=== PATIENT | male | born 1980 | race Caucasian/White ===

== ENCOUNTER 2019-08-10 10:06 | Emergency (ER) | payer OTHER, SELFPAY ==
[2019-08-10 10:10] VITALS: BMI 27.2
[2019-08-10 10:15] VITALS: BP 146/102; PULSE 81; RESP 16; TEMP 36.9; O2SAT 98
--- NOTE | 2019-08-10 10:28 | W.ED.WOUNDLC ---
HPI - Wound/Laceration General: Chief Complaint: Wound/Laceration Stated Complaint: FALL WITH LAC ABOVE RIGHT EYE Time Seen by Provider: 08/10/19 10:10 Source: patient Mode of arrival: ambulatory Limitations: no limitations History of Present Illness: HPI narrative: Patient is a 38-year-old male who presents to ED today seeking evaluation for a laceration to his face. Patient states around 3 AM last night he accidentally slipped and fell on a wet bathroom floor and struck the right eyebrow sustaining a laceration. Patient denies LOC. He denies neck or back pain. No visual changes. He has no other physical complaints at this time. Last tetanus is unknown. Onset (ago): hour(s) Location: face Place: home Patient tetanus UTD: No Context: accidental Associated symptoms: Reports no associated symptoms Review of Systems Eyes: Denies: change in vision, blurry vision, blind spots, photophobia, eye discomfort, eye discharge, floaters or seeing flashes Musc: Denies: neck pain, back pain, extremity pain or joint pain Skin/Breast: Reports: other (laceration ) Neuro: Denies: headache, numbness in extremities, weakness in extremities, changes in sensation, lack of coordination, difficulty walking, frequent falls, dizziness, confusion or slurred speech PFSH ED PFSH: Social History Smoking and tobacco status: never smoked Physical Exam Const: COMMON NORMALS: no apparent distress, average body habitus, oriented x3, no limitations, healthy appearing, alert and well nourished HENMT: HEAD IMAGES: 1. 2.0cm laceration; not bleeding; no globe injury present Eye: COMMON NORMALS: PERRL, EOMs intact bilaterally, conjunctivae normal and no scleral icterus GENERAL EYE: normal appearance of both eyes and normal light reflex VISUAL ACUITY: Yes acuity normal ALIGNMENT: Yes alignment normal EYELID: eyelids normal CONJUNCTIVA: Yes conjunctivae normal CORNEA: Yes corneas normal PUPIL: Yes PERRL and Yes accommodation reflex normal DIRECT OPHTHALMOSCOPY: Yes normal light reflex Neck/C-Spine: COMMON NORMALS: full ROM CERVICAL SPINE: Yes cervical ROM normal, No pain with cervical ROM, No cervical spine tenderness and No paracervical muscle tenderness Back/Pelvis: COMMON NORMALS: thoracic and lumbar spine normal to inspection, no thoracic nor lumbar tenderness and thoraco-lumbar ROM normal Extremity: COMMON NORMALS: normal to inspection and full ROM Neuro: COMMON NORMALS: oriented x3 SENSORIUM/ORIENTATION: Yes alert Procedures Laceration Laceration 1: Site: face Side (If applicable): right Size (cm): 2.0 Description: linear Depth: simple, single layer Local Anesthetic: lidocaine 1% and with epi Amount of anesthesia used (mL): 1.0 Pre-repair: wound explored and irrigated extensively Skin layer closed with: nylon Size (cm): 5-0 Number of sutures: 6 Technique: simple, interrupted Course Vital Signs: Vital signs: Vital Signs Temperature 98.4 F 08/10/19 10:15 Pulse Rate 81 08/10/19 10:15 Respiratory Rate 16 08/10/19 10:15 Blood Pressure 146/102 08/10/19 10:15 Pulse Oximetry 98 08/10/19 10:15 Discharge Plan Discharge Patient Disposition: Home, Self-Care Clinical Impression: Facial laceration Qualifiers: Encounter type: initial encounter Qualified Code(s): S01.81XA - Laceration without foreign body of other part of head, initial encounter Condition: Stable Discharge Orders: Discharge Order (Routine); Ordered 08/10/19 Ordered By: Nasra Arroyo Referrals: [facility] [Other] Discharge Diet: Usual diet Discharge Activity: Resume usual activity Patient Instructions: Suture Care (ED), Laceration (ED) Activity Restrictions/Additional Instructions: SUTURES CAN BE CUT OUT IN 5-7 DAYS. Coding Level of Care Code ED [employer] Teacher for No Fwd Exam Detailed
[2019-08-10] MEDS: tetanus-diphtheria tox (adult) 0.5 mL SDV IM (10:43)
[2019-08-10 11:51] VITALS: BP 134/92; PULSE 76; RESP 16; TEMP 36.6; O2SAT 98
== END 2019-08-10 11:53 | disposition home or self-care (01) ==
LOC: ER 11:40
PROVIDERS: Emergency Provider Physician Assistant
DX: S01.111A Laceration without foreign body of right eyelid and periocular area, initial encounter (principal); W01.0XXA Fall on same level from slipping, tripping and stumbling without subsequent striking against object, initial encounter; Y92.002 Bathroom of unspecified non-institutional (private) residence as the place of occurrence of the external cause
CPT/HCPCS: 12011; 12345; 90471; 90714; 99281; 99282; J2001

== ENCOUNTER 2020-01-29 13:56 | Emergency (ER) | payer SELFPAY ==
[2020-01-29 14:14] VITALS: BP 142/90; PULSE 110; RESP 14; TEMP 36.5; O2SAT 99; BMI 27.2
--- NOTE | 2020-01-29 14:52 | W.ED.ANXIETY ---
HPI - Anxiety General: Chief Complaint: Anxiety Stated Complaint: PANIC ATTACKS X 4 DAYS Time Seen by Provider: 01/29/20 14:47 History of Present Illness: HPI narrative: Patient complains about anxiety has a history of. just left median divorce. Feels very anxious denies any suicidal or homicidal ideations has been on anxiety medication in the past now but really help. Would like to try some different if possible. MD complaint: anxiety Severity: moderate Quality: constant History of similar episodes: Yes Provoking factors: emotional stress Relieving factors: nothing Exacerbating factors: thinking about event Associated symptoms: Reports no associated symptoms; Deny chest pain, chills, fever(s), headache(s), nausea or vomiting Review of Systems Const: Denies: fever(s), chills or body aches Eyes: Denies: change in vision or blurry vision ENMT: Denies: throat pain or nasal congestion Card: Denies: chest pain or dyspnea on exertion Resp: Denies: dyspnea, productive cough or non-productive cough GI: Denies: abdominal pain, nausea or vomiting : Denies: difficulty urinating Musc: Denies: extremity pain Skin/Breast: Denies: rash Neuro: Denies: headache(s) Psych: Reports: anxiety; Denies: depression, suicidal ideation or homicidal ideation Zi/Lymph: Denies: easy bruising PFSH ED PFSH: Social History Smoking and tobacco status: never smoked Physical Exam Const: COMMON NORMALS: no acute distress, average body habitus and patient oriented x3 HENMT: COMMON NORMALS: normocephalic HEAD & SCALP: normal to inspection and normocephalic FACE & SINUS: normal facial exam Eye: COMMON NORMALS: conjunctivae normal GENERAL EYE: appearance normal, both eyes and all related structures CONJUNCTIVA: Yes conjunctivae normal Neck/C-Spine: COMMON NORMALS: no JVD Chest: COMMONS NORMALS: normal inspection of the chest Resp: COMMON NORMALS: normal respiratory effort and clear to auscultation bilaterally AUSCULTATION: clear to auscultation bilaterally Cardio: COMMON NORMALS: no JVD, regular rate and regular rhythm RATE: regular rate RHYTHM: regular rhythm GI: COMMON NORMALS: Normal to inspection, nondistended, normoactive bowel sounds present Extremity: COMMON NORMALS: normal to inspection and full ROM Neuro: COMMON NORMALS: patient oriented x3 Psych: COMMON NORMALS: mental status grossly normal, Normal thought process present, speech normal, denies hallucinations, denies homicidal ideation and denies suicidal ideation APPEARANCE: Yes grossly normal ATTITUDE: Yes calm ACTIVITY/MOTOR BEHAVIOR: Yes appropriate eye contact SPEECH: Yes normal speech MOOD & AFFECT: Yes anxious THOUGHT PROCESS: Normal thought process present THOUGHT CONTENT: Yes Normal thought content present ATTENTION/CONCENTRATION: Yes attention grossly intact MEMORY/COGNITION: Yes memory grossly intact Course Vital Signs: Vital signs: Vital Signs Temperature 97.7 F 01/29/20 14:14 Pulse Rate 78 01/29/20 15:22 Respiratory Rate 18 01/29/20 15:22 Blood Pressure 124/72 01/29/20 15:22 Pulse Oximetry 94 01/29/20 15:22 MDM - Anxiety MDM Narrative: Medical decision making narrative: Patient has history of anxiety. And is been irritated by his leaving him undergoing get a divorce. There is children involved. Patient is not suicidal or homicidal. I do trust him to take Xanax is short-term we discussed that and discussed not using alcohol with it. Patient will follow primary care provider behavioral health care to continue medication he is never had tried Paxil before and willing to try that to help with his ongoing general anxiety. Discharge Plan Discharge Patient Disposition: Home Clinical Impression: Acute anxiety Condition: Stable Prescriptions: New Paxil 10 mg tablet 10 mg PO DAILY Qty: 20 RF: 0 Xanax 0.5 mg tablet 0.25 mg PO TID PRN (Reason: anxiety) Qty: 14 RF: 0 Discharge Orders: Discharge Order (Routine); Ordered 01/29/20 Ordered By: Michael Carson Discharge Diet: Usual diet Discharge Activity: Resume usual activity Patient Instructions: Anxiety (ED) Activity Restrictions/Additional Instructions: Follow-up with medical provider as directed. Take medications as prescribed. Return to the ER or your medical provider if condition worsens. Please read and understand discharge instructions. If any questions ask please. Establish a primary care provider soon as possible and our behavioral health care [facility] intake services here at [facility]. Do not drink alcohol with your medication. Discharge Date/Time: 01/29/20 15:24 Coding Level of Care Code ED Transition Rn for No Fwd Exam Comprehensive
[2020-01-29 15:22] VITALS: BP 124/72; PULSE 78; RESP 18; O2SAT 94
== END 2020-01-29 15:24 | disposition home or self-care (01) ==
PROVIDERS: Emergency Provider Nurse Practitioner Family
DX: F41.9 Anxiety disorder, unspecified (principal)
CPT/HCPCS: 12345; 99281

== ENCOUNTER 2020-10-17 09:27 | Emergency (ER) | payer SELFPAY ==
[2020-10-17 09:31] VITALS: BP 113/84; PULSE 105; RESP 18; TEMP 36.6; O2SAT 95; BMI 27.2
[2020-10-17 09:37] VITALS: BP 113/84; PULSE 111; RESP 16; O2SAT 93
--- NOTE | 2020-10-17 09:40 | ED_ITS ---
HPI - Extremity Problem General: Chief complaint: Extremity Problem,Nontraumatic Stated complaint: LEFT ARM/HAND NUMB Time Seen by Provider: 10/17/20 09:35 History of Present Illness: HPI Narrative: Patient states about 7 days ago he went to bed feeling fine and then woke up with the numbness in his left hand at times. He said is continuing now for 7 days he has some tingling he says his hand contracts sometimes just feels weird worse when he lifts his arm up he says. Complaint: other (Left arm tingling) Onset (ago): day(s) Pain Consistency: intermittent Location: left and upper extremity Quality: other Relieving factors: nothing Exacerbating factors: range of motion Associated symptoms: Reports no associated symptoms; Deny chest pain, fever(s) or rash Review of Systems Const: Denies: fever(s), chills or body aches Eyes: Denies: change in vision or blurry vision ENMT: Denies: throat pain or nasal congestion Card: Denies: chest pain or dyspnea on exertion Resp: Denies: dyspnea, productive cough or non-productive cough GI: Denies: abdominal pain, nausea or vomiting : Denies: difficulty urinating Musc: Denies: extremity pain Skin/Breast: Denies: rash Neuro: Reports: other (Tingling left arm numbness at times in hand worse with range of motion); Denies: headache(s) Psych: Denies: anxiety or depression Zi/Lymph: Denies: easy bruising PFSH ED PFSH: Medical History (Updated 10/17/20 @ 10:13 by MAURISIO Álvarez) Anxiety Depression Insomnia disorder, with non-sleep disorder mental comorbidity Surgical History H/O hemorrhoidectomy Family History Other Cancer Diabetes Social History Smoking and tobacco status: current every day smoker cigarettes [ Other cigarette details: recent, due to anxiety ] Second hand smoke exposure: Yes Alcohol intake: current Alcohol intake frequency: few times a month Marital status: Physical Exam Const: COMMON NORMALS: no acute distress, average body habitus and patient oriented x3 HENMT: COMMON NORMALS: normocephalic HEAD & SCALP: normal to inspection and normocephalic FACE & SINUS: normal facial exam Eye: COMMON NORMALS: conjunctivae normal GENERAL EYE: appearance normal, both eyes and all related structures CONJUNCTIVA: Yes conjunctivae normal Neck/C-Spine: COMMON NORMALS: no JVD Chest: COMMONS NORMALS: normal inspection of the chest Resp: COMMON NORMALS: normal respiratory effort and clear to auscultation bilaterally AUSCULTATION: clear to auscultation bilaterally Cardio: COMMON NORMALS: no JVD, regular rate and regular rhythm RATE: regular rate RHYTHM: regular rhythm GI: COMMON NORMALS: Normal to inspection, nondistended, normoactive bowel sounds present Extremity: COMMON NORMALS: normal to inspection and full ROM Neuro: COMMON NORMALS: patient oriented x3 and CN's II-XII intact bilaterally SENSORY EXAM: Yes extremities (Left upper extremity with good neurovascular status) Course Vital Signs: Vital signs: Vital Signs Temperature 97.9 F 10/17/20 09:31 Pulse Rate 111 H 10/17/20 09:37 Respiratory Rate 16 10/17/20 09:37 Blood Pressure 113/84 10/17/20 09:37 Pulse Oximetry 93 10/17/20 09:37 MDM - Extremity (Nontraumatic) MDM Narrative: Medical decision making narrative: Radiology studies were negative for any gross changes. Patient has symptoms can consistent with radiculopathy. Patient says he would like to give a chiropractor a chance to do manipulation. Did instruct him that he needs follow-up with the primary care provider and discuss how to establish with one here in this area. Discharge Plan Discharge Patient Disposition: Home Clinical Impression: Cervical radiculopathy Condition: Stable Prescriptions: New prednisone 20 mg tablet 20 mg PO DAILY Qty: 7 RF: 0 Celebrex 100 mg capsule 100 mg PO BID Qty: 20 RF: 0 No Action buspirone 7.5 mg tablet 7.5 mg PO BID Qty: 60 RF: 1 hydroxyzine HCl 50 mg tablet 50 mg PO Q8H PRN (Reason: For sleep and anxiety) Qty: 60 RF: 1 paroxetine HCl [Paxil] 20 mg tablet 20 mg PO BID Qty: 60 RF: 2 Discharge Orders: Discharge ED (Routine); Ordered 10/17/20 Ordered By: Michael Carson Discharge Diet: Usual diet Discharge Activity: Increase activity as tolerated Patient Instructions: Cervical Radiculopathy (ED) Activity Restrictions/Additional Instructions: Follow-up with medical provider as directed. Take medications as prescribed. Return to the ER or your medical provider if condition worsens. Please read and understand discharge instructions. If any questions ask please. Establish at [facility] and make an appointment with a provider. A visit to the chiropractor would possibly be of benefit. Apply ice to your neck. Do gentle range of motion exercises. Coding Level of Care Code ED Marketing Technology Specialist for Chg Fwd Exam Comprehensive
--- NOTE | 2020-10-17 09:40 | XR_ITS ---
WS: [id number] Cervical spine, 3 views, 10/17/2020 Clinical Data: left arm pain Comparison: Cervical spine, 10/21/2015. Findings: No compression fractures are seen. The disc heights are normal. There is no prevertebral so ft tissue swelling. The odontoid is unremarkable. The soft tissues of the neck and the lung apices ar e normal. XR/XR cervical spine 3V* [id number] Impression: Negative cervical spine.
[2020-10-17 10:18] VITALS: BP 155/87; PULSE 85; RESP 18; O2SAT 93
== END 2020-10-17 10:20 | disposition home or self-care (01) ==
PROVIDERS: Emergency Provider Nurse Practitioner Family
DX: M54.12 Radiculopathy, cervical region (principal); F17.210 Nicotine dependence, cigarettes, uncomplicated
CPT/HCPCS: 72040; 99282

== ENCOUNTER → 2021-01-29 16:09 | Outpatient (BNVA) | payer OTHER, SELFPAY | PROVIDERS: Visit Provider Nurse Practitioner Family | DX: Z20.822 Contact with and (suspected) exposure to COVID-19 (principal); J06.9 Acute upper respiratory infection, unspecified | CPT/HCPCS: 87635 ==

== ENCOUNTER → 2021-11-18 10:03 | Outpatient (BNVA) | payer BC, MEDICAID, SELFPAY | PROVIDERS: PCP Family Medicine; Visit Provider Family Medicine | DX: F41.9 Anxiety disorder, unspecified (principal); G44.329 Chronic post-traumatic headache, not intractable; R56.1 Post traumatic seizures; S06.9X9S Unspecified intracranial injury with loss of consciousness of unspecified duration, sequela; X58.XXXS Exposure to other specified factors, sequela | CPT/HCPCS: 80053; 80061; 84443; 85025 ==

== ENCOUNTER → 2023-12-01 09:51 | Outpatient (BNVA) | payer MEDICAID, SELFPAY | PROVIDERS: PCP Family Medicine; Visit Provider Specialist | DX: G43.711 Chronic migraine without aura, intractable, with status migrainosus (principal); S06.9X9S Unspecified intracranial injury with loss of consciousness of unspecified duration, sequela; R41.1 Anterograde amnesia; H53.461 Homonymous bilateral field defects, right side; R03.0 Elevated blood-pressure reading, without diagnosis of hypertension; X58.XXXS Exposure to other specified factors, sequela | CPT/HCPCS: 99213 ==

== ENCOUNTER → 2023-12-27 09:13 | Outpatient (BNVA) | payer MEDICAID, SELFPAY | PROVIDERS: PCP Family Medicine; Visit Provider Family Medicine | DX: Z00.00 Encounter for general adult medical examination without abnormal findings (principal) | CPT/HCPCS: 80053; 80061; 83036; 83721; 84443; 85025 ==

== ENCOUNTER → 2024-10-10 15:23 | Outpatient (BNVA) | payer MEDICARE, MEDICAID, SELFPAY | PROVIDERS: PCP Family Medicine; Visit Provider Specialist | DX: G43.711 Chronic migraine without aura, intractable, with status migrainosus (principal); S06.9X9S Unspecified intracranial injury with loss of consciousness of unspecified duration, sequela; R41.1 Anterograde amnesia; H53.461 Homonymous bilateral field defects, right side; R03.0 Elevated blood-pressure reading, without diagnosis of hypertension; X58.XXXS Exposure to other specified factors, sequela | CPT/HCPCS: 99213 ==

== ENCOUNTER → 2025-01-03 15:00 | Outpatient (BNVA) | payer MEDICARE, MEDICAID, SELFPAY | PROVIDERS: PCP Family Medicine; Visit Provider Specialist | DX: G43.711 Chronic migraine without aura, intractable, with status migrainosus (principal); S06.9X9S Unspecified intracranial injury with loss of consciousness of unspecified duration, sequela; R41.1 Anterograde amnesia; H53.461 Homonymous bilateral field defects, right side; R03.0 Elevated blood-pressure reading, without diagnosis of hypertension; F90.0 Attention-deficit hyperactivity disorder, predominantly inattentive type; X58.XXXS Exposure to other specified factors, sequela | CPT/HCPCS: 99214 ==

== ENCOUNTER → 2025-03-12 15:21 | Outpatient (BNVA) | payer MEDICARE, MEDICAID, SELFPAY | PROVIDERS: PCP Family Medicine; Visit Provider Family Medicine | DX: Z00.00 Encounter for general adult medical examination without abnormal findings (principal); E78.5 Hyperlipidemia, unspecified | CPT/HCPCS: 80053; 80061 ==

== ENCOUNTER → 2025-03-27 13:52 | Outpatient (BNVA) | payer MEDICARE, MEDICAID, SELFPAY | PROVIDERS: PCP Family Medicine; Visit Provider Specialist | DX: S06.9X9S Unspecified intracranial injury with loss of consciousness of unspecified duration, sequela (principal); F90.0 Attention-deficit hyperactivity disorder, predominantly inattentive type; H53.461 Homonymous bilateral field defects, right side; X58.XXXS Exposure to other specified factors, sequela | CPT/HCPCS: 99213 ==